=== PATIENT | female | born 1955 | race Caucasian/White ===

== ENCOUNTER → 2017-05-24 | Outpatient (CLI) | payer OTHER ==
[2017-04-30 11:07] VITALS: BP 138/61
[~2017-05-24] MED LIST: AMIO200T2 PO; ASPI-482 PO; ASPI325T11 PO; ATOR20TA PO; CALC500T54 PO; CETI10TA22 PO; CINN500C2 PO; CYAN500T17 PO; FEXO60TA25 PO; METF-620 PO; METO-239 PO; METO25TA4 PO; OMEG100021 PO; PYRI200T3 PO; SITA25TA PO; TRAM1TAB4 PO
--- NOTE | 2017-05-24 17:20 | RAD ---
CHEST PA LATERAL Clinical Indication: STATUS POST CORONARY ARTERY BYPASS Comparison: Chest radiograph dated 04/29/2017 Findings: The patient is slightly rotated to the right. Low lung volume. No focal consolidation. Normal pulmonary vasculature. Possible trace left pleural effusion. No pneumothorax. The cardiomediastinal silhouette and great vessels are normal. Median sternotomy. No acute osseous abnormality. IMPRESSION: 1. No focal consolidation. 2. Possible trace left pleural effusion.
== END | disposition home or self-care (01) ==
LOC: RAD 11:46
PROVIDERS: ATTEND Thoracic Surgery (Cardiothoracic Vascular Surgery)
DX: Z95.1 Presence of aortocoronary bypass graft (principal)
CPT/HCPCS: 71020

== ENCOUNTER → 2018-01-13 | Outpatient (CLI) | payer BC | END | disposition home or self-care (01) | LOC: ECHO 08:52 | DX: I25.10 Atherosclerotic heart disease of native coronary artery without angina pectoris (principal); I34.0 Nonrheumatic mitral (valve) insufficiency; E55.9 Vitamin D deficiency, unspecified; I10 Essential (primary) hypertension; E78.5 Hyperlipidemia, unspecified; E87.6 Hypokalemia; K21.9 Gastro-esophageal reflux disease without esophagitis; Z87.11 Personal history of peptic ulcer disease | CPT/HCPCS: 93306 ==

== ENCOUNTER → 2018-12-03 | Outpatient (CLI) | payer BC ==
[2017-04-30 11:07] VITALS: BP 138/61
[~2018-12-03] MED LIST changes: -AMIO200T2 PO; +AMIO200T4 PO; -METF-620 PO; +METF10007 PO
--- NOTE | 2018-12-03 10:01 | RAD ---
Carotid ultrasound, 12/03/2018: HISTORY: Coronary artery disease Duplex evaluation of the carotid arteries in neck was performed including grayscale, color-flow and spectral Doppler analysis. There is mild intimal thickening and smooth plaquing at both carotid bifurcations. The peak systolic velocity in the right internal carotid artery is 92 cm per sec with an end-diastolic velocity of 20 cm/s. The peak systolic velocity in the left internal carotid artery is 81 cm/s with an end-diastolic velocity of 30 cm/s. These Doppler findings suggest luminal narrowing in the 0-50% diameter range. There is no duplex evidence of high-grade stenosis. Antegrade flow is present in both vertebral arteries in the neck. IMPRESSION: Mild atherosclerotic plaquing at both carotid bifurcations with underlying luminal narrowing in the 0-50% diameter range bilaterally. Note: Stenosis calculations for CTA, MRA and conventional angiography are based upon determination of the distal ICA diameter in accordance with the NASCET methodology. Stenosis calculations for Doppler studies are derived from validated velocity criteria which are known to correlate with NASCET methodology of determining stenosis.
--- NOTE | 2018-12-03 11:36 | CARD ---
MR#: [id number] Date of Study: 12/03/2018 Ordering Physician: OTONIEL CORADO, Referring Physician: OTONIEL CORADO, Tech: Elizabeth Cat [facility] APPROVED REPORT EXAM: Two-dimensional and M-mode echocardiogram with Doppler and color Doppler. Other Information Quality : GoodHR: 69bpm Rhythm : NSR INDICATION CAD 2D DIMENSIONS RVDd2.6 (2.9-3.5cm)Left Atrium(2D)2.8 (1.6-4.0cm) IVSd0.7 (0.7-1.1cm)Aortic Root(2D)2.5 (2.0-3.7cm) LVDd4.7 (3.9-5.9cm)LVOT Diameter1.8 (1.8-2.4cm) PWd0.8 (0.7-1.1cm)LVDs3.5 (2.5-4.0cm) FS (%) 24.3 %SV49.0 ml LVEF(%)48.3 (>50%) M-Mode DIMENSIONS Left Atrium(MM)3.71 (2.5-4.0cm)Aortic Root2.67 (2.2-3.7cm) Aortic Valve AoV Peak Ebne.166.0cm/sAoV VTI40.3cm AO Peak GR.11.0mmHgLVOT Peak Eben.91.2cm/s AO Mean GR.6mmHgAVA (VMAX)1.46cm2 Mitral Valve MV E Iwggqits24.8cm/sMV DECEL [id number] MV A Zewoqyve80.5cm/sE/A Ratio1.2 Pulmonary Valve PV Peak Mmimzjjn08.4cm/s Tricuspid Valve TR P. Uchtvsef214oa/sRAP CMYPHXLM4cxRq TR Peak Gr.36icNlPYKR34zlIc Pulmonary Vein S1 Hrmdskfi80.4cm/sD2 Extwgwvk81.0cm/s PVa rcrrhahp532fctt LEFT VENTRICLE The left ventricle is normal size. There is normal left ventricular wall thickness. The systolic func tion is mildly impaired. The Ejection Fraction is 45%. Mild global hypokinesis. Transmitral Doppler f low pattern is Grade II-pseudonormal filling dynamics. RIGHT VENTRICLE The right ventricle is normal size. There is normal right ventricular wall thickness. The right ventr icular systolic function is normal. ATRIA The left atrium size is normal. The right atrium size is normal. The interatrial septum is intact wit h no evidence for an atrial septal defect or patent foramen ovale as noted on 2-D or Doppler imaging. AORTIC VALVE The aortic valve is calcified but opens well. The aortic valve is trileaflet. Doppler and Color Flow revealed no significant aortic regurgitation. There is no significant aortic valvular stenosis. There is no aortic valvular vegetation. MITRAL VALVE Mitral annular calcification is mild. There is no evidence of mitral valve prolapse. There is no mitr al valve stenosis. Doppler and Color-flow revealed mild mitral regurgitation. TRICUSPID VALVE The tricuspid valve is normal in structure and function. Doppler and Color Flow revealed mild tricusp id regurgitation. The PA pressure was estimated at 28 mmHg. There is no tricuspid valve prolapse or v egetation. There is no tricuspid valve stenosis. PULMONIC VALVE The pulmonic valve is not well visualized. GREAT VESSELS The aortic root is normal in size. The ascending aorta is normal in size. The IVC is normal in size a nd collapses >50% with inspiration. PERICARDIAL EFFUSION There is no evidence of significant pericardial effusion. Critical Notification Critical Value: No <Conclusion> The systolic function is mildly impaired. The Ejection Fraction is 45%. Mild global hypokinesis. Signed by : Otoniel Corado, Electronically Approved : 12/03/2018 11:36:32
== END | disposition home or self-care (01) ==
LOC: US 08:46
PROVIDERS: ATTEND Internal Medicine Cardiovascular Disease
DX: I08.3 Combined rheumatic disorders of mitral, aortic and tricuspid valves (principal); I65.23 Occlusion and stenosis of bilateral carotid arteries; I25.10 Atherosclerotic heart disease of native coronary artery without angina pectoris
CPT/HCPCS: 93306; 93880

== ENCOUNTER → 2021-01-13 | Outpatient (CLI) | payer BC, MEDICARE ==
[2017-04-30 11:07] VITALS: BP 138/61
[~2021-01-13] MED LIST changes: -AMIO200T4 PO; +AMIO200T6 PO; -CETI10TA22 PO; +CETI10TA74 PO
--- NOTE | 2021-01-13 15:38 | CARD ---
MR#: [id number] Date of Study: 01/13/2021 Ordering Physician: OTONIEL CORADO, Referring Physician: OTONIEL CORADO, Tech: Kelsi Pierson, [facility] APPROVED REPORT EXAM: Two-dimensional and M-mode echocardiogram with Doppler and color Doppler. Other Information Quality : AverageHR: 76bpm INDICATION Cardiac Disease: CAD Surgery/Intervention CABG: Date: 2016 Site: [facility] 2D DIMENSIONS RVDd3.2 (2.9-3.5cm)Left Atrium(2D)3.0 (1.6-4.0cm) IVSd0.8 (0.7-1.1cm)Aortic Root(2D)2.2 (2.0-3.7cm) LVDd4.2 (3.9-5.9cm)LVOT Diameter1.9 (1.8-2.4cm) PWd0.9 (0.7-1.1cm)LVDs2.7 (2.5-4.0cm) FS (%) 35.5 %SV51.6 ml Aortic Valve AoV Peak Eben.192.5cm/sAoV VTI45.5cm AO Peak GR.14.8mmHgAO Mean GR.9mmHg Mitral Valve MV E Civksgzw96.9cm/sMV DECEL HITJ580ki MV A Ykayjqzf32.4cm/sMV E Mean Gr.2mmHg MV SLQ86rtQ/A Ratio0.9 MVA (PHT)2.73cm2 TDI E/Lateral E'6.5E/Medial E'9.9 Pulmonary Valve PV Peak Bjpgvsad36.3cm/sPV Peak Grad.4mmHg Tricuspid Valve TR P. Wvriuccp479ky/sRAP FWVCLLFK0fxLh TR Peak Gr.61hbWfKCIG04wbIa Pulmonary Vein S1 Ttiawnuy41.0cm/sD2 Jdjhioqn62.4cm/s PVa tahhntgd97veam LEFT VENTRICLE The left ventricle is normal size. There is normal left ventricular wall thickness. The left ventricu lar systolic function is normal and the ejection fraction is within normal range. The Ejection Fracti on is 55-60%. There is normal LV segmental wall motion. Transmitral Doppler flow pattern is Grade II- pseudonormal filling dynamics. RIGHT VENTRICLE The right ventricle is normal size. There is normal right ventricular wall thickness. The right ventr icular systolic function is normal. ATRIA The left atrium size is normal. The right atrium size is normal. The interatrial septum is intact wit h no evidence for an atrial septal defect or patent foramen ovale as noted on 2-D or Doppler imaging. AORTIC VALVE The aortic valve is thickened but opens well. Doppler and Color Flow revealed trace aortic regurgitat ion. There is no significant aortic valvular stenosis with a peak gradient of 15 mmHg and a mean grad ient of 9 mmHg. MITRAL VALVE The mitral valve is normal in structure and function. There is no evidence of mitral valve prolapse. There is no mitral valve stenosis. Doppler and Color-flow revealed trace mitral regurgitation. TRICUSPID VALVE The tricuspid valve is normal in structure and function. Doppler and Color Flow revealed trace tricus pid regurgitation with an estimated PAP of 30 mmHg. There is no tricuspid valve stenosis. PULMONIC VALVE The pulmonic valve is not well visualized. Doppler and Color Flow revealed trace pulmonic valvular re gurgitation. GREAT VESSELS The aortic root is normal in size. The IVC is normal in size and collapses >50% with inspiration. PERICARDIAL EFFUSION There is no evidence of significant pericardial effusion. Critical Notification Critical Value: No <Conclusion> The left ventricle is normal size. The left ventricular systolic function is normal and the ejection fraction is within normal range. The Ejection Fraction is 55-60%. Doppler and Color Flow revealed trace aortic regurgitation. There is no significant aortic valvular stenosis with a peak gradient of 15 mmHg and a mean gradient of 9 mmHg. Doppler and Color-flow revealed trace mitral regurgitation. Doppler and Color Flow revealed trace tricuspid regurgitation with an estimated PAP of 30 mmHg. Signed by : Max Aceves MD Electronically Approved : 01/13/2021 15:37:44
== END ==
LOC: ECHO 13:44
PROVIDERS: ATTEND Internal Medicine Cardiovascular Disease
DX: I25.10 Atherosclerotic heart disease of native coronary artery without angina pectoris (principal)
CPT/HCPCS: 93306